=== PATIENT | female | born 1955 | race Caucasian/White ===

== ENCOUNTER 2018-09-29 09:01 | Day surgery (SDC) | payer OTHER ==
[2018-09-29] MEDS ORDERED: LIDOCAINE 2% (SDV) 5 ML INJ (11:30)
[2018-09-29] MEDS ORDERED: PROPOFOL 40 ML (11:30)
[2018-09-29] MEDS ORDERED: FENTAnyl 50 MCG/ML VIAL (11:31)
[2018-09-29] MEDS ORDERED: MIDAZOLAM 1 MG/ML 2 ML INJ (11:31)
== END 2018-09-29 14:38 | disposition home or self-care (01) ==
LOC: GIL 09:01
DX: Z12.11 Encounter for screening for malignant neoplasm of colon (principal); K64.8 Other hemorrhoids; D12.0 Benign neoplasm of cecum; R10.31 Right lower quadrant pain; J45.909 Unspecified asthma, uncomplicated; K76.0 Fatty (change of) liver, not elsewhere classified; E11.8 Type 2 diabetes mellitus with unspecified complications; Z79.84 Long term (current) use of oral hypoglycemic drugs; Z80.0 Family history of malignant neoplasm of digestive organs
CPT/HCPCS: 45380; 82962; 88305

== ENCOUNTER 2018-12-22 06:56 | Day surgery (SDC) | payer OTHER ==
[~2018-12-22 06:56] MED LIST: MITOMYCIN 5 MG INJ LEFT EYE
[2018-12-22] MEDS ORDERED: PHENYLephrine 10% 5 ML OPH (06:57)
[2018-12-22] MEDS ORDERED: BALANCED SALT SOLN 15 ML OPH IRRIG (07:00)
[2018-12-22] MEDS ORDERED: FENTAnyl 50 MCG/ML VIAL (07:56)
[2018-12-22] MEDS ORDERED: PROPOFOL 20 ML (07:56)
[2018-12-22] MEDS ORDERED: ONDANSETRON 4 MG INJ IV (08:00)
[2018-12-22] MEDS ORDERED: HYDROmorphONE 1 MG/5 ML IV SYRINGE IV ×3 (08:00)
[2018-12-22] MEDS ORDERED: LABETALOL HCL 20MG INJ IV (08:00)
[2018-12-22] MEDS ORDERED: OXYCODONE/ACETAMINOPHEN (5/325) TAB PO ×2 (08:00)
[2018-12-22] MEDS ORDERED: ALBUTEROL 0.083% (NEB) 2.5 MG/3 ML AMP HHN (08:00)
[2018-12-22] MEDS: LIDOCAINE 1%/EPI 30 ML INJ (09:33)
[2018-12-22] MEDS: TETRACAINE 0.5% 4 ML OPH (09:34)
[2018-12-22] MEDS: TOBRAMYCIN/DEXAMETH 3.5 GM OPH OINT (09:34)
[2018-12-22] MEDS: HYDROCODONE/APAP (5/325) TAB PO (11:10)
== END 2018-12-22 11:30 | disposition home or self-care (01) ==
LOC: SDS 06:56
DX: H11.152 Pinguecula, left eye (principal); J45.40 Moderate persistent asthma, uncomplicated; E11.9 Type 2 diabetes mellitus without complications
CPT/HCPCS: 68110; 82962